=== PATIENT | female | born 1980 | race Caucasian/White ===

== ENCOUNTER 2020-06-26 15:11 | Outpatient (CLI) | payer OTHER, SELFPAY ==
--- NOTE | ~2020-06-26 | MM_ITS ---
EXAMINATION: MM screening [facility] BI w tracey HISTORY: Screening mammogram TECHNIQUE: Craniocaudal and mediolateral oblique 3-D tomosynthesis images were obtained and synthetic 2-D images were generated. CAD analysis was submitted and interpreted. COMPARISON: No prior mammogram is available for comparison at this institution. BREAST PARENCHYMAL COMPOSITION: FINDINGS: There is a circumscribed approximately 11 mm opacity deep in the posterior upper right [address] on MLO view (MLO Tomosynthesis image 14/46), not included in the screening view. A 1.9 x 1.7 x 0.8 cm cyst was reported in similar location on 05/11/2019 diagnostic right mammogram and limited right b reast ultrasound examinations. Diagnostic right mammogram is recommended for complete evaluation in 2 orthogonal views, with ultrasound correlation if required Otherwise there is no evidence of suspicious mass, calcification, or architectural distortion to sugg est malignancy in either breast. There has been no suspicious interval change. IMPRESSION: 1. Approximately 11 mm mass in the posterior upper right breast on MLO view, not apparently included on CC image 2. Diagnostic right mammogram is recommended, with ultrasound if required. BI-RADS Category 0: Incomplete: Needs additional imaging evaluation. Reviewed, dictated and finalized at location A. IMPRESSION: 1. Approximately 11 mm mass in the posterior upper right breast on MLO view, no t apparently included on CC image 2. Diagnostic right mammogram is recommended, with ultrasound if required. BI-RADS Category 0: Incomplete: Needs additional imaging evaluation.
== END 2020-06-26 15:12 | disposition home or self-care (01) ==
LOC: ANHIMG 15:13
PROVIDERS: PCP Family Medicine; Visit Provider Obstetrics & Gynecology
DX: Z12.31 Encounter for screening mammogram for malignant neoplasm of breast (principal); N63.10 Unspecified lump in the right breast, unspecified quadrant
CPT/HCPCS: 77063; 77067

== ENCOUNTER 2020-07-25 13:12 | Outpatient (CLI) | payer OTHER, SELFPAY ==
--- NOTE | ~2020-07-25 | MMUS_ITS ---
EXAMINATION: MM diagnostic mammo unilat RT, US breast RT limited HISTORY: Follow-up right breast mass TECHNIQUE: Additional 3-D tomosynthesis images of the right breast were performed and synthetic 2-D i mages were generated. CAD analysis was submitted and interpreted. High resolution Limited right breas t ultrasound was performed. COMPARISON: Comparison to multiple prior studies sequentially, with oldest reviewed study dated 01/24. BREAST PARENCHYMAL COMPOSITION: BREAST PARENCHYMAL COMPOSITION: The breasts are heterogeneously dense, which may obscure small masses . FINDINGS: MAMMOGRAPHIC FINDINGS: The right breast is stable without evidence for malignancy. Stable benign-appearing mass right axilla ry region, best seen on MLO view. ULTRASOUND: Limited right breast ultrasound: At 10:00, 3 cm from the nipple, there is a 5 mm cyst. At 2:00, 2 cm from the nipple, there is an oval hypoechoic mass with parallel orientation, no significant posterior features with low level internal echoes measuring 9 mm. This was not definitely visualized on prior examination and there is no defin itive mammographic correlate. IMPRESSION: 1. Probable benign 9 mm right breast mass at 2:00, 2 cm from the nipple.. 2. Recommend 6 month follow-up right breast ultrasound BI-RADS category 3, probably benign findings. Reviewed, dictated and finalized at location A. IMPRESSION: 1. Probable benign 9 mm right breast mass at 2:00, 2 cm from the nipple.. 2. Recommend 6 month follow-up right breast ultrasound BI-RADS category 3, probably benign findings.
== END 2020-07-25 13:13 | disposition home or self-care (01) ==
PROVIDERS: PCP Family Medicine; Visit Provider Obstetrics & Gynecology
DX: N60.01 Solitary cyst of right breast (principal)
CPT/HCPCS: 76642; 77065

== ENCOUNTER 2021-04-05 13:27 | Outpatient (CLI) | payer OTHER, SELFPAY ==
--- NOTE | ~2021-04-05 | US_ITS ---
US breast RT limited DATE: 04/05/2021 14:42 INDICATION: Six-month follow-up of probable benign 9 mm right mass at 2:00 2 cm from nipple TECHNIQUE: High-resolution ultrasound imaging targeted at 2:00 3 cm from nipple and 10:00 3 cm from n ipple COMPARISON: 07/25/2020 diagnostic right mammogram and limited right breast ultrasound FINDINGS: There is a parallel circumscribed hypoechoic solid lesion measuring 3.6 x 9 x 13 mm dimensi on, unchanged in size shape compared to 07/25/2020, without shadowing or internal vascularity. The ap pearance is consistent with benign process. 10.1 x 9.6 x 7.7 mm simple cyst at 10:00 3 cm from nipple. IMPRESSION: BI-RADS Category 2: Benign Recommendation: Routine mammographic screening Reviewed, dictated and finalized at Location A. Reviewed, dictated and finalized at location A.
== END 2021-04-05 13:28 | disposition home or self-care (01) ==
PROVIDERS: PCP Family Medicine; Visit Provider Obstetrics & Gynecology
DX: N60.01 Solitary cyst of right breast (principal)
CPT/HCPCS: 76642

== ENCOUNTER 2022-11-26 08:40 | Outpatient (CLI) | payer OTHER, SELFPAY ==
--- NOTE | 2022-11-26 11:00 | NEURO_ITS ---
Impression: Patient reports a history of bilateral hand numbness. # Normal nerve conduction study. # Normal needle/EMG exam. # Clinical correlation recommended. Motor Nerve Conduction Upper Extremities Median Nerve Conduction Velocity (m/sec) Terminal Latency (msec) Response Voltage(mV) Elbow-Wrist Wrist Elbow Wrist Right 61 2.7 5 7 Left 58 2.6 7 8 Ulnar Nerve Conduction Velocity (m/sec) Terminal Latency (msec) Response Voltage(mV) Above Elbow Below Elbow Wrist Above Elbow Below Elbow Wrist Right 63 62 2.2 9 7 8 Left 61 62 2.4 8 6 9 F-Wave Latency Median (ms) Ulnar (ms) Right 25.5 25.6 Left 25.6 25.1 Sensory Nerve Conduction Upper Extremities Median Nerve Stimulation Terminal Latency (msec) Wrist/Digit Response Voltage (uV) Wrist Right 2.7/2.7 88/76 Left 2.8/2.9 88/89 Ulnar Nerve Stimulation Terminal Latency (msec) Wrist/Digit Response Voltage (uV) Wrist Right 2.5 70 Left 2.5 70 Radial Nerve Terminal Latency (msec) Response Voltage(mV) Right 1.7 69 Left 1.9 79 Left Right Muscles Examined Fibrillation Fasciculation Scarcity Voltage Duration Left Right Left Right Left Right Left Right Left Right Deltoid Biceps X X Brachioradialis Triceps X X Pronator Teres X X Ext Indicis X X Ext Digitorum X X Abd Poll Brev X X 1st Dorsal Interosseus Paraspinals MTDD
== END 2022-11-26 08:41 | disposition home or self-care (01) ==
LOC: ANHNEURO 08:40
PROVIDERS: PCP Family Medicine; Visit Provider Internal Medicine
DX: G56.00 Carpal tunnel syndrome, unspecified upper limb (principal)
CPT/HCPCS: 95886; 95911

== ENCOUNTER 2022-11-26 14:42 | Outpatient (CLI) | payer OTHER, SELFPAY ==
--- NOTE | ~2022-11-26 | MM_ITS ---
EXAMINATION: MM screening [facility] BI w tracey HISTORY: Screening TECHNIQUE: Craniocaudal and mediolateral oblique 3-D tomosynthesis images were obtained and synthetic 2-D images were generated. CAD analysis was submitted and interpreted. COMPARISON: Comparison to multiple prior studies sequentially, with oldest reviewed study dated 01/28. BREAST PARENCHYMAL COMPOSITION: The breasts are heterogeneously dense, which may obscure small masses . FINDINGS: There is no evidence of suspicious mass, calcification, or architectural distortion to sugg est malignancy in either breast. There has been no suspicious interval change. IMPRESSION: 1. No mammographic evidence of malignancy. 2. Recommend routine screening mammography in one year. BI-RADS Category 1: Negative Reviewed, dictated and finalized at location A. BURLER
== END 2022-11-26 14:43 | disposition home or self-care (01) ==
LOC: ANHIMG 14:43
PROVIDERS: PCP Internal Medicine; Visit Provider Obstetrics & Gynecology
DX: Z12.31 Encounter for screening mammogram for malignant neoplasm of breast (principal)
CPT/HCPCS: 77063; 77067; 95886; 95911

== ENCOUNTER → 2023-11-19 14:58 | Outpatient (CLI) | payer OTHER, SELFPAY ==
--- NOTE | ~2023-11-19 | US_ITS ---
EXAMINATION: US pelvic complete w TV DATE: 11/19/2023 15:25 INDICATION: Postmenopausal bleeding. TECHNIQUE: Multiple transabdominal and transvaginal sonographic images of the pelvis were obtained. COMPARISON: None. FINDINGS: TRANSABDOMINAL ULTRASOUND: The uterus measures 7.2 x 2.7 x 3.6 cm. There is no free fluid in the pelvis. TRANSVAGINAL ULTRASOUND: The endometrial complex measures 10 mm in thickness. There are cysts in the endometrial complex. Ther e are nabothian cysts in the cervix. The right ovary measures 2.7 x 2.1 x 2.6 cm. The left ovary winsome ures 2.8 x 1.8 x 2.7 cm. IMPRESSION: 1. Thickened endometrial complex. The differential diagnosis includes endometrial hyperplasia, polyp, and carcinoma. Biopsy is recommended. Reviewed, dictated and finalized at location E. ICAL EDUCATION TEACHER IMPRESSION: 1. Thickened endometrial complex. The differential diagnosis includes endometri al hyperplasia, polyp, and carcinoma. Biopsy is recommended.
== END ==
PROVIDERS: PCP Obstetrics & Gynecology; Visit Provider Obstetrics & Gynecology
DX: R93.89 Abnormal findings on diagnostic imaging of other specified body structures (principal); N95.0 Postmenopausal bleeding
CPT/HCPCS: 76830; 76856

== ENCOUNTER 2023-12-04 07:09 | Outpatient (CLI) | payer OTHER, SELFPAY ==
[2023-12-04 08:14] LABS: Hematocrit 46.1 % (37.0-47.0); Hemoglobin 15.2 g/dL (12.0-15.0)
== END 2023-12-04 07:10 | disposition home or self-care (01) ==
PROVIDERS: PCP Nurse Practitioner Family; Visit Provider Obstetrics & Gynecology
DX: Z01.818 Encounter for other preprocedural examination (principal); N92.6 Irregular menstruation, unspecified
CPT/HCPCS: 36415; 85014; 85018

== ENCOUNTER 2023-12-11 06:09 | Day surgery (SDC) | payer OTHER, SELFPAY ==
[2023-12-02 12:33] VITALS: BMI 24.2
--- NOTE | 2023-12-09 05:57 | P.HP_ITS ---
H&P: HPI History of Present Illness Date/Time: 12/09/23 05:57 Chief Complaint: vaginal bleeding Narrative: 43-year-old female for hysteroscopy dilatation curettage secondary to bleeding. [facility] Past Medical History Medical History Bilateral lower abdominal cramping Family History Family History Grandparent No problems noted. 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 Gender identity (if verbalized by the patient): Female Spiritual care concerns: No Meds Home Medications and Allergies Home Medications Medication Instructions Recorded Confirmed Type dicyclomine 10 mg capsule 10 mg PO TID PRN abdominal 01/31/23 12/02/23 Rx discomfort #30 caps bupropion HCl 150 mg 24 hr tablet, 150 mg PO DAILY 04/22/23 12/02/23 History extended release Allergies Allergy/AdvReac Type Severity Reaction Status Date / Time No Known Allergies Allergy Verified 12/02/23 12:35 Exam Const: General: cooperative, healthy appearing and comfortable Nutritional Appearance: average body habitus Orientation/consciousness: oriented to person, oriented to place and oriented to time HENMT: Head: normal to inspection Resp: Effort & Inspection: normal respiratory effort Cardio: Rate: regular rate Rhythm: regular rhythm Heart sounds: S1 normal heart sound present and S2 normal heart sound present GI: Inspection: normal to inspection : External Female Exam: normal external appearance Speculum Exam - Vagina: normal appearance of the vagina and vaginal bleeding Speculum Exam - Cervix: normal appearance of the cervix Bimanual exam- vagina & uterus: enlarged Bimanual Exam- Adnexa, other: normal adnexae Assessment and Plan Assessment and plan (1) Vaginal bleeding: Code(s): N93.9 - Abnormal uterine and vaginal bleeding, unspecified Status: Acute Plan hysteroscopy/dilatation and curettage
--- NOTE | 2023-12-11 05:42 | WPDHPUPDATE1 ---
History and Physical Update Update Date/Time: 12/11/23 05:42 History and Physical has been reviewed, including an updated exam of the patient. There are NO changes in the patient's condition. Risks, benefits, and alternatives have been discussed and questions answered. Patient agrees to proceed with procedure.
--- NOTE | 2023-12-11 06:57 | WPDANESEPPF ---
Anes - Initial Pre Proc Eval Procedure: Operation Date: 12/11/23 07:30 Proposed Procedures p Hysteroscopy with Dilation and Curettage - Sergei Saini MD Date/Time: 12/11/23 06:57 Surgeon: Sergei Saini MD Pre Op Diagnosis: Irregular Bleeding, Thickened Endometrium Patient Data Age: 43 Gender: F Height: 1.63 m Weight: 64 kg Allergies Allergy/AdvReac Type Severity Reaction Status Date / Time No Known Allergies Allergy Verified 12/02/23 12:35 Home Medications Medication Instructions Recorded Confirmed Type dicyclomine 10 mg capsule 10 mg PO TID PRN abdominal 01/31/23 12/02/23 Rx discomfort #30 caps bupropion HCl 150 mg 24 hr tablet, 150 mg PO DAILY 04/22/23 12/02/23 History extended release hydrocodone 5 mg-acetaminophen 325 1 tablet PO Q4H PRN pain #20 tabs 12/11/23 Rx mg tablet Patient hx anesthesia problems: none Family hx anesthesia problems: none Results Review: All pre-operative results and documents have been reviewed as part of the pre-operative evaluation. [facility] Past Medical History Medical History Bilateral lower abdominal cramping Family History Family History Grandparent No problems noted. 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 Informed Consent: The patient's anesthetic plan and its attendant risks and benefits were discussed with the patient/family/POA. Questions were solicited and answers provided to the satisfaction of the patient/family/POA.
[2023-12-11] MEDS: ACETAMINOPHEN 500 MG TABLET 1000 MG PO (07:08)
[2023-12-11] MEDS: LACTATED RINGERS 1,000 ML 30 ML IV CONT (07:11)
[2023-12-11 07:15] VITALS: BP 133/81; PULSE 76; RESP 20; TEMP 36.1; O2SAT 99
[2023-12-11] MEDS: LIDOCAINE HCL 1% LOCAL INJ 20 ML VIAL 10 ML INFILTRATE (07:21)
--- NOTE | 2023-12-11 07:29 | W.PM.PROC2 ---
Procedure Note - Detailed Date of Procedure 12/11/23 Pre-op Diagnosis Irregular Bleeding, Thickened Endometrium Post-op Diagnosis Same Procedure Performed hysteroscopy/dilatation curettage Surgeon Sergei Saini MD Anesthesia MAC and Local Indications this is a 43-year-old female with irregular uterine bleeding Findings benign atrophic appearing endometrium Description of Procedure patient was prepped draped in normal sterile fashion placed in dorsal lithotomy position. Under excellent IV sedation weighted speculum placed in posterior fornix vagina. Anterior lip of the cervix grasped with single-tooth tenaculum. 2.5cc 1% xylocaine anesthesia placed at 2, 4, 8, 10:00 a.m. of the cervix. Uterus sounded to 8cm. Serial dilatation with fragmented dilators performed followed by passage of the 5mm visualizing hysteroscope. Normal saline was used as visualizing medium. No definitive abnormalities were seen. The uterus was scraped over the entire 360? with the removing very small amount of tissue was expected. Instruments withdrawn the patient went to recovery in satisfactory condition. All sponge, needle, instrument counts were correct. There were immediate complications Estimated Blood Loss 5 Drains No Packing No Pathology Yes Complications No immediate complications Condition Stable Disposition PACU
[2023-12-11 07:34] VITALS: BP 117/89; PULSE 79; RESP 20; O2SAT 100
--- NOTE | 2023-12-11 07:43 | WPDANESPN ---
Anes - Prog Note Post-Op Date/Time: 12/11/23 07:43 Cardiovascular status: normal Respiratory status: normal Airway patency: baseline Mental status: baseline Post-Op hydration status: normal Vital Signs: Last Vital Signs Temp 36.1 C L 12/11/23 07:15 Pulse 79 12/11/23 07:34 Resp 20 12/11/23 07:34 BP 117/89 12/11/23 07:34 Pulse Ox 100 12/11/23 07:34 O2 Del Method Room Air 12/11/23 07:34 Pain Score (VAS): 0 Patient Feedback: Patient satisfied with anesthetic care.
[2023-12-11 07:55] VITALS: BP 108/78; PULSE 80; RESP 20; O2SAT 100
== END 2023-12-11 08:15 | disposition home or self-care (01) ==
PROVIDERS: PCP Nurse Practitioner Family; Visit Provider Obstetrics & Gynecology
PROC: 0U5B8ZZ Destruction of Endometrium, Via Natural or Artificial Opening Endoscopic (ICD-10-PCS; CPT 58563; principal; 2023-12-11 07:30)
DX: N93.8 Other specified abnormal uterine and vaginal bleeding (principal)
CPT/HCPCS: 58558

== ENCOUNTER 2023-12-11 08:41 | Outpatient (NON) | payer OTHER, SELFPAY | END 2023-12-11 08:42 | disposition home or self-care (01) | PROVIDERS: PCP Nurse Practitioner Family; Visit Provider Obstetrics & Gynecology | DX: R10.31 Right lower quadrant pain (principal); R10.32 Left lower quadrant pain | CPT/HCPCS: 88305 ==

== ENCOUNTER 2024-02-03 15:06 | Outpatient (CLI) | payer OTHER, SELFPAY ==
--- NOTE | ~2024-02-03 | MM_ITS ---
EXAMINATION: MM screening [facility]ela BI w tracey HISTORY: Screening mammogram TECHNIQUE: Craniocaudal and mediolateral oblique 3-D tomosynthesis images were obtained and synthetic 2-D images were generated. CAD analysis was submitted and interpreted. COMPARISON: 11/26/2022 bilateral screening mammogram 04/01/2021 Limited right breast ultrasound examination 07/25/2020 diagnostic right mammogram and limited right breast ultrasound examination 06/26/2020 bilateral screening mammogram BREAST PARENCHYMAL COMPOSITION: The breasts are heterogeneously dense, which may obscure small masses . FINDINGS: Stable circumscribed approximately 11 mm mass with halo sign is again noted posteriorly in the upper outer quadrant of the right breast, not significant changed in size since 06/26/2020. The ci rcumscribed margins and halo sign in the lack of significant change since 06/26/2020, most consistent with benign process. There is no evidence of suspicious mass, calcification, or architectural distort ion to suggest malignancy in either breast. There has been no suspicious interval change. IMPRESSION: 1. No mammographic evidence of malignancy. 2. Recommend routine screening mammography in one year. BI-RADS Category 2: Benign finding(s). Reviewed, dictated and finalized at location A.
== END 2024-02-03 15:07 | disposition home or self-care (01) ==
LOC: ANHIMG 15:09
PROVIDERS: PCP Nurse Practitioner Family; Visit Provider Obstetrics & Gynecology
DX: Z12.31 Encounter for screening mammogram for malignant neoplasm of breast (principal)
CPT/HCPCS: 77063; 77067

== ENCOUNTER 2024-07-01 12:48 | Outpatient (CLI) | payer OTHER, SELFPAY ==
--- NOTE | ~2024-07-01 | CT_ITS ---
EXAMINATION: CT cervical spine wo con DATE: 07/01/2024 13:20 INDICATION: Headache. Cervicalgia. TECHNIQUE: Computed tomography (CT) of the cervical spine was performed without intravenous contrast. The dose-length product was 140.65 mGy-cm. COMPARISON: Cervical spine radiographs dated 08/04/2019 FINDINGS: Straightening of the normal cervical lordosis. No spondylolisthesis or facet subluxation. Vertebral b nikki heights are normal. No acute fracture. Minimal disc height loss at C5-C6. Mild facet osteoarthrit is bilaterally at C7-T1. Minimal osteoarthritis at a few of the remaining cervical facet joints. Ther e is also minimal to mild multilevel cervical uncovertebral osteoarthritis. No central canal or neura l foraminal stenosis. Cervical soft tissues are unremarkable. Visualized apices of lungs are clear. IMPRESSION: 1. Minimal cervical spondylosis. No acute osseous abnormality. Reviewed, dictated and finalized at location B.
--- NOTE | ~2024-07-01 | CT_ITS ---
EXAMINATION: CT brain wo con DATE: 07/01/2024 13:20 INDICATION: Headache TECHNIQUE: Computed tomography (CT) of the head was performed without intravenous contrast. Sagittal and coronal reconstructions were performed. The mA was adjusted according to patient size. Iterative reconstruction technique was employed. The dose-length product was 524.62 mGy-cm. COMPARISON: None FINDINGS: No acute intracranial hemorrhage, acute infarction or abnormal extra axial fluid collection. Ventricl es are normal and symmetric. No mass/mass effect. The orbits, paranasal sinuses and mastoid air cells are normal. IMPRESSION: 1. Normal brain. No acute intracranial process. Reviewed, dictated and finalized at location B.
== END 2024-07-01 12:49 | disposition home or self-care (01) ==
LOC: MICIMG 12:49
PROVIDERS: PCP Nurse Practitioner Family; Visit Provider Nurse Practitioner Family
DX: R51.9 Headache, unspecified (principal)
CPT/HCPCS: 70450; 72125

== ENCOUNTER 2025-03-22 09:12 | Outpatient (CLI) | payer OTHER, SELFPAY ==
--- NOTE | ~2025-03-22 | MM_ITS ---
EXAMINATION: MM screening angela BI w tracey HISTORY: Screening TECHNIQUE: Craniocaudal and mediolateral oblique 3-D tomosynthesis images were obtained and synthetic 2-D images were generated. CAD analysis was submitted and interpreted. COMPARISON: Comparison to multiple prior studies sequentially, with oldest reviewed study dated 04/21. BREAST PARENCHYMAL COMPOSITION: Dense: The breasts are heterogeneously dense, which may obscure small masses FINDINGS: There is no evidence of suspicious mass, calcification, or architectural distortion to sugg est malignancy in either breast. There has been no suspicious interval change. IMPRESSION: 1. No mammographic evidence of malignancy. 2. Recommend routine screening mammography in one year. BI-RADS Category 1: Negative Reviewed, dictated and finalized at location B.
--- OUTSIDE RECORDS SUMMARY | 2025-03-22 09:40 | XMS_ITS | Referral Summary ---
Author Organization [facility] [address] [facility] lt Address [address] [place] [address] Care Team Providers Care Compensation Consulting Manager Name Role Phone Vincent Oneal DO Primary Care Provider [phone] Allergies No known active allergies Medications lamoTRIgine (LaMICtal) 200 mg tablet 03/03/2021 Active Active Problems Problem Noted Date Diagnosed Date Abnormal mammogram 02/14/2016 Social History Tobacco Use Types Packs/Day Years Used Date Smoking Tobacco: Former Smokeless Tobacco: Never Personal Safety Answer Date Recorded Getting School Help Needed Not on file 10/18 Comments Unknown Sex and Gender Information Value Date Recorded Sex Assigned at Not on file Legal 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 Gender Identity Not on file Sexual Orientation Not on file Last Filed Vital Signs Vital Sign Reading Time Taken Comments Blood Pressure 94/66 04/25/2021 8:40 AM CDT Pulse 87 04/25/2021 8:40 AM CDT Temperature 36.3 C (97.4 F) 04/25/2021 8:40 AM CDT Respiratory Rate 16 04/25/2021 8:40 AM CDT Oxygen Saturation 99% 04/25/2021 8:40 AM CDT Inhaled Oxygen Concentration - - Weight 59.5 kg (131 lb 3.2 oz) 04/25/2021 8:40 A M CDT Height 166 cm (5' 5.35) 04/25/2021 8:40 AM CDT Body Mass Index 21.6 04/25/2021 8:40 AM CDT Plan of Treatment Not on file Insurance [facility] CHOICE PLUS Care Teams Compensation Consulting Manager Relationship Specialty Start Date End Date Vincent Oneal DO PCP - General Internal Medicine 04/25/21
--- OUTSIDE RECORDS SUMMARY | 2025-03-22 09:40 | XMS_ITS | Clinical Summary ---
Author Organization [facility] [address] [facility] lt Address [address] [place] [address] Care Team Providers Care Fighter Pilot Name Role Phone Vincent Oneal DO Primary Care Provider [phone] Allergies No known active allergies Medications lamoTRIgine (LaMICtal) 200 mg tablet 03/03/2021 Active Active Problems Problem Noted Date Diagnosed Date Abnormal mammogram 02/14/2016 Surgical History Surgery Date Site/Laterality Comments DILATION AND CURETTAGE OF UTERUS WISDOM TOOTH EXTRACTION x4 TONSILLECTOMY AND ADENOIDECTOMY TYMPANOSTOMY TUBE PLACEMENT REFRACTIVE SURGERY Medical History Medical History Date Comments Anxiety Depression Arthritis Social History Tobacco Use Types Packs/Day Years Used Date Smoking Tobacco: Former Smokeless Tobacco: Never Personal Safety Answer Date Recorded Getting School Help Needed Not on file 10/18 Comments Unknown Sex and Gender Information Value Date Recorded Sex Assigned at Not on file 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
--- OUTSIDE RECORDS SUMMARY | 2025-03-22 09:40 | XMS_ITS | Clinical Summary ---
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 This disclosure is being madepursuant to the Care Everywhere program and may not contain all information available regarding this patient. Last updated 18.[facility] [employer] Allergies No known active allergies Medications * Be aware that medications may not be up to date on this document. Alwaysverify current medications with the patient. azelastine (Astelin) 0.1 % nasal spray Garner 1 (one) spray into each nostril 2 times daily 2 Active Flowflex COVID-19 Ag Home Test KIT 3 Active dicyclomine (Bentyl) 10 MG capsule Take 1 (one) capsule by mouth as needed 3 Active predniSONE (Deltasone) 20 MG tablet Take 1 (one) tablet by mouth as directed 2 Active triamcinolone acetonide (Kenalog In Orabase) 0.1 % paste Apply 1 applicator to affected area as directed 2 Active buPROPion XL 24hr (Wellbutrin-XL) 150 MG tablet Take 1 (one) tablet by mouth once daily 3 Active ALPRAZolam (Xanax) 0.25 MG tablet Take 1 (one) tablet by mouth once daily as needed 4 Active Active Problems Problem Noted Date Diagnosed Date 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 Abnormal mammogram 02/14/2016 03/19/2023 Social History Tobacco Use Types Packs/Day Years Used Date Smoking Tobacco: Former Cigarettes 0.3 10 Smokeless Tobacco: Never Tobacco Cessation:Counseling Given: Not Answered Alcohol Use Standard Drinks/Week Comments Yes 3 (1 standard drink = 0.6 oz pur e alcohol) Comments Unknown Sex and Gender Information Value Date Recorded Sex Assigned at Female 01/30/2023 11:44 AM CDT Legal Sex Female 3:07 PM CDT Gender Identity Female 01/30/2023 11:44 AM CDT Sexual Orientation Straight 01/30/2023 11 :44 AM CDT Last Filed Vital Signs Vital Sign Reading Time Taken Comments Blood Pressure 117/76 03/23/2024 10:47 AM CDT Pulse 68 03/23/2024 10:47 AM CDT Temperature - - Respiratory Rate - - Oxygen Saturation - - Inhaled Oxygen Concentration - - Weight 63.3 kg (139 lb 9.6 oz) 03/23/2024 10:47 AM CDT Height 162.6 cm (5' 4) 03/23/2024 10:47 AM CDT Body Mass Index 23.96 03/23/2024 10:47 AM CDT Plan of Treatment Health Maintenance Due Date Last Done Comments COLOGUARD (AGES 45-75) - COL ON CA SCREENING 1978 COLON MONITORING 1978 COLONOSCOPY - COLON CA SCREENING 1978 CT COLONOGRAPHY - COLON CA SCREENING 1978 Colorectal Cancer Screening 1978 FIT - COLON CA SCREENING 1978 FLEX SIG - COLON CA SCREENING 1978 LIPID TESTING 1978 MAMMOGRAM 1978 PAP SMEAR 1978 HIV SCREENING 1993 HEPATITIS C SCREENING 10/13/1996 DTAP/TDAP/TD VACCINES (1 - Tdap) 1997 HEPATITIS B VACCINE (1 of 3 - 19+ 3-dose series) 1997 COVID-19 VACCINE (2023-2 5 season) 2024 07/11/2021, 11/29/2020, 11/07/2020 DEPRESSION SCREENING 10/13/2024 INFLUENZA VACCINE (Season Ended) 2025 ZOSTER VACCINE (1 of 2) 2028 HIB VACCINE Aged Out No longer eligi ble based on patient's age to complete this topic HPV VACCINE Aged Out No longer eligi ble based on patient's age to complete this topic MENINGOCOCCAL (Group B) VACCINE SHARED DECISION-MAKING Aged Out No longer eligible based on patient's age to complete this topic MENINGOCOCCAL GROUPS A/C/Y/W VACCINE Aged Out No longer eligible b ased on patient's age to complete this topic PNEUMOCOCCAL VACCINE Aged Out No long er eligible based on patient's age to complete this topic Insurance [employer]ARE [employer] SELF PAY NO INSURANCE Member Subscriber Plan / Payer (Ef fective for All Dates) Name:Trinidad Valerio Member ID:Not on file Relation to Subscriber:Not on file Name:TRINIDAD VALERIO Subscriber ID:Not on file (Home) Address: [address] [place] [phone] Payer ID:Not on file Group ID:Not on file Type:Self Pay Address: [place], [place] [facility] SELF PAY NO INSURANCE Member Subscriber Plan / Payer (Ef fective for All Dates) Name:Trinidad Valerio Member ID:Not on file Relation to Subscriber:Not on file Name:TRINIDAD VALERIO Subscriber ID:Not on file (Home) Address: [address] [place] [phone] Payer ID:Not on file Group ID:Not on file Type:Self Pay Address: [place], [place] [facility] SELF PAY NO INSURANCE Member Subscriber Plan / Payer (Ef fective for All Dates) Name:Trinidad Valerio Member ID:Not on file Relation to Subscriber:Not on file Name:TRINIDAD VALERIO Subscriber ID:Not on file (Home) Address[address] [place] [address] Payer ID:Not on file Group ID:Not on file Type:Self Pay Address: [place], [place] Care Teams High School Mathematics Teacher Relationship Specialty Start Date End Date Vincent Oneal DO [address] [facility] [address] [place] [address] PCP - General Internal Medicine 04/09/23
--- OUTSIDE RECORDS SUMMARY | 2025-03-22 09:40 | XMS_ITS | Continuity of Care Document ---
Author Organization [facility] Address [address] [place] [address] Phone Care Team Providers Care Nissan Sales Consultant Name Role Phone Quintanilla OD, Mikhail Unavailable Unavailable Advance Directives Directive Yes / No Effective Date File Name No Information Encounters Encounter Description Practice Location Reason(s) For Visit Diagnoses Date Provider Providers Copied on Encounter [facility], [address], [place], [place], [id number], tel:[phone] [facility] No Information 6-200 4 Quintanilla OD Mikhail. [address] , [address], [place], [address], [place]. tel:[phone] Family History Family Member Type Diagnosis Age At Onset No Information Payers Payer name Insurance type Covered republican ID Authoriza tion(s) [employer] Plan CI [id number] Social History Type Description Quantity Date Captured Comments Sex Female Smoking Status No Information Chief Complaint And Reason For Visit No Information Reason For Referral Reason For Referral No Information History Of Present Illness Encounter Date Complaint History Of Prese nt Illness No Information Functional Status Date Functional Assessmen t No Information Instructions Date Instruction Additional Infor mation No Information Assessments Type Assessment Date No Information Patient Care Teams Name Effective Dates (start - stop) Status Members No Information
--- OUTSIDE RECORDS SUMMARY | 2025-03-22 09:40 | XMS_ITS | Data Portability ---
Author Organization [facility] [employer], Main Office Address [address] [place] [address] Care Team Providers Care Tank Wagon Operator Name Role Phone CARINE CHAVEZ Primary Care Provider CARINE CHAVEZ Referring Provider Assessment Encounter Date Assessment Date Assessment LastModified by Organization Details LastModified Time 01/01/2023 01/01/2023 HPI: 42-year-old female came in today for evaluation of her bilateral hand and wrist pain and numbness. She has been having symptoms for over year. Patient will get pain in the hands and the thumbs particular as the day progresses. 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 She points at the 1st dorsal compartment where she tends to feel symptoms. She also will state that pain radiates up into the thumbs as well. She will get occasional get pain in the wrists mostly in the dorsum of the wrist again after working longer days. She gets no numbness or tingling in the fingers during the day. Patient has been getting numbness in the 4th and 5th fingers in both hands particularly at night. She has had a history of shoulder problems and has been sleeping on her back for last several months and will tend to put her hands on her chest. She will wake up with her 4th and 5th fingers tingle. Again she is having no tingling during the day. Patient has had an EMG study done through her primary care doctor which was normal, no evidence of carpal or cubital tunnel or cervical pathology noted. Physical exam: 42-year-old female alert pleasant. She has full range of motion of her wrists fingers and elbows in both arms. 2+ radial pulse in both wrists. She has a negative Tinel's over the median nerve as well as the ulnar nerve in both arms. She has a negative carpal tunnel compression test in both wrists. She has no tenderness over the 1st dorsal compartment in both wrist. Negative Joshua maneuver bilaterally. Normal interosseous strength to both hands. She did demonstrate how she sleeps at night with her hands on her chest and after doing this she noticed that the 4th and 5th fingers in both hands or tingling shortly after this. 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 I think this is relative to the way she has been sleeping on her back with her elbows hyperflexed. I have talked about cubital tunnel syndrome with her and given her the handout on it. I have recommended that she get the elbow braces and wear these at night to see if this improves her symptoms. Also caution her during the day to avoid keeping the elbow was hyperflexed when she is using her phone are other activities. When she is working I also advised her to keep any pressure off the elbows when she is at her desk. I think she also has some evidence of de Quervain in both of her wrists given the fact that she has pain in these areas and points exactly the to the 1st dorsal compartment Where she feels the symptoms. Today she is asymptomatic from it. if she does have progression of this I discussed treatment options including cortisone injection as well as surgery. Her EMG study was perfectly normal so hopefully the splint will help with the numbness and tingling sensations. With regard to the other pains that she is having in the wrist and fingers I have recommended that she start using anti-inflammato jared on a regular basis. She has alleviate home and is going to start with this and take it twice a day as recommended to see if this helps improve some of her hand pain. 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 We will plan see her back in a month to reassess. 30 minutes was spent in treatment patient more than half this in [id number] conversation [email or web address] Not available 01/01/2023 11:02:12 Plan of Treatment Reminders Order Date Submit Date Provider Last Modified By Organization Details Last Modified Time Details Appointments None recorde d. Lab None recorde d. Referral None recorde d. Procedures None recorde d. Surgeries None recorde d. Imaging XR, wrist 023 01/02/20 23 [email or web address] [facility], [address], [place], [address], 3 11:05:13 Medication Orders None recorde d. Patient TargetsNo targets recorded. Patient InstructionsNo instructions recorded. Reason for Referral None Reported. Results Created Date Observation Date Name Description Value Unit Range Abnormal Flag Note LastModifiedBy Organization Detail LastModifiedTime 01/02/20 XR, wrist No observ ation record ed. [email or web address] [facility] [address], [place], [address], 01/01/2023 10:55:52 01/04/20 23 11/26/2022 nerve condu ction study /EMG (PROC ) No observ ation record ed. [email or web address] Not Available 2022 10:01:37 Result Notes None recorded. Problems Name Problem SNOMED Code Status Onset Date Resolution Date Notes Provider Name and Address Organization Details Recorded Time Bilateral wrist pain 81939939931380 105 Active 2022 CHRISTI Tafoya Kyte 3 09:34:47 Problem Notes None recorded. Procedures Surgical History Date Name Laterality Status Provider Name and Address Organization Details Recorded Time procedure on tonsils completed CHRISTI Tafoya Kyte 01/01/2023 09:34:00 Imaging Results None recorded. Procedure Notes None recorded. Medical Equipment None Reported. Allergies No known drug allergies Medications Name Sig Start Date Stop Date Status Note LastModified by Organization Details LastModified Time prednisone 20 mg tablet TAKE 2 TABLETS BY MOUTH 1 TIME IN THE MORNING DIRECTED 01/01 completed Not Available Not Available Not Available triamcinolo ne acetonide 0.1 % dental paste 01/01 completed Not Available Not Available Not Available azelastine 137 mcg (0.1 %) nasal spray USE 1 SPRAY IN EACH NOSTRIL TWICE DAILY 01/01 completed Not Available Not Available Not Available dicyclomine 10 mg capsule active Not Available Not Available Not Available Flowflex COVID-19 Antigen Home Test kit active Not Available Not Available Not Available Vitals Date Recorded Body height Body mass index (BMI) Body weight Provider Name and Address Organization Details Last Updated DateTime 01/01/2023 162.56 cm 25.1 kg/m2 00769.49 g CHRISTI Tafoya [place] [facility] 01/01/2023 09:44:14 Social History None recorded. Functional Status Question Answer Note LastModified by Organizat ion Details LastModified Time What is your level of alcohol consumption? Occasional [email or web address] Information not available 01/01/2023 Mental Status None recorded. Family History Nothing Reported. Medical History Condition Response ARTHRITIS Y Gynecological HistoryNo gynecological history recorded. Obstetrics History GPAL:G 0 P 0 0 0 0 Past Encounters Encounter ID Performer Location Encounter Start Date Encounter Closed Date Diagnosis/Indication Diagnosis SNOMED-CT Code Diagnosis ICD10 Code Diagnosis Note [id number] Shorty Beebe MD [facility] [address] [place] [address] 01/01/2023 09:13:17 01/01/2023 11:05:13 Bilateral wrist pain [id number] M25.531 M25.532 Health Concerns Section Related Observation LastModified by Organization Detai ls LastModified Time None Recorded Concern Status LastModified by Organization Details LastModified Time None Recorded Advance Directives Directive None Recorded Payers Encounter Date Sequence Insurance Name Policy Number Policy Velazquez Covered Member ID Velazquez Member ID Guarantor Name 01/01/2023 1 [facility] [id number] Trinidad L Chiapelli [id number] Trinidad Chiapelli OBGyn Episode No OBEpisode recorded.
== END 2025-03-22 09:13 | disposition home or self-care (01) ==
PROVIDERS: PCP Internal Medicine; Visit Provider Obstetrics & Gynecology
DX: Z12.31 Encounter for screening mammogram for malignant neoplasm of breast (principal)
CPT/HCPCS: 77063; 77067